=== PATIENT | male | born 1975 | race Caucasian/White ===

== ENCOUNTER 2019-01-11 03:45 | Outpatient (CLI) | payer MEDICAID | END 2019-01-11 03:46 | disposition EMS.NT | LOC: EMS 03:45 | PROVIDERS: ATTEND Surgery | DX: R06.2 Wheezing (principal) ==

== ENCOUNTER 2019-01-11 07:47 | Outpatient (CLI) | payer MEDICAID | END 2019-01-11 07:48 | disposition critical access hospital (66) | LOC: EMS 07:47 | PROVIDERS: ATTEND Surgery | DX: R06.00 Dyspnea, unspecified (principal) | CPT/HCPCS: A0425; A0427; A0999 ==

== ENCOUNTER 2019-01-11 08:12 | Emergency (ER) | payer MEDICAID ==
[2019-01-11] MEDS ORDERED: PROPOFOL 1000 MG/100 ML 100 ML IV STA (08:23)
[2019-01-11] MEDS ORDERED: ROCURONIUM 50 MG/5 ML VIAL IVP STA (08:24)
[2019-01-11] MEDS ORDERED: ETOMIDATE 40 MG/20 ML VIAL IVP STA (08:24)
[2019-01-11] MEDS ORDERED: IPRATROPIUM/ALBUTEROL 3 ML NEB INH STA (08:25)
[2019-01-11 08:32] LABS: BASOPHILS # (AUTO) 0.1 10^3/uL (0.0-0.1); BASOPHILS % (AUTO) 0.3 %; EOSINOPHILS % (AUTO) 0.1 %; HGB - HEMOGLOBIN 12.4 g/dL (14.0-18.0); LYMPHOCYTES # (AUTO) 0.6 10^3/uL (1.5-3.5); LYMPHOCYTES % (AUTO) 3.2 %; MEAN CORPUSCULAR HEMOGLOBIN 26.3 pg (27.0-31.0); MEAN CORPUSCULAR HGB CONC 29.6 g/dL (32.0-36.0); MEAN PLATELET VOLUME 8.8 fL (7.4-11.4); MONOCYTES % (AUTO) 5.8 %; NEUTROPHILS % (AUTO) 86.5 %; PLT - PLATELET COUNT 506 10^3/uL (130-450); RED BLOOD COUNT 4.71 10^6/uL (4.70-6.10); RED CELL DISTRIBUTION WIDTH 14.7 % (12.0-15.0); VBG BASE EXCESS -11.7 mmol/L (-2 - +2); VBG PCO2 63.4 mmHg (41-51); VBG PH 7.09 (7.31-7.41); VBG PO2 65.2 mmHg (25-47); VBG TOTAL CO2 20.7 mmol/L (24-29); WHITE BLOOD COUNT 17.4 x10^3/uL (4.8-10.8)
[2019-01-11 08:46] LABS: ALBUMIN/GLOBULIN RATIO 0.8 (1.0-2.2); BILIRUBIN,TOTAL 0.8 mg/dL (0.2-1.0); CALCIUM 8.4 mg/dL (8.5-10.3); CREATININE 0.9 mg/dL (0.6-1.2); TOTAL PROTEIN 6.6 g/dL (6.7-8.2)
[2019-01-11] MEDS ORDERED: SODIUM CHLORIDE 0.9% 500 ML IV ONE ×2 (08:47→10:51)
--- NOTE | 2019-01-11 08:47 | XRAY Report ---
Reason: chest pain Procedure Date: 01/11/2019 Accession Number: [id number] / [id number] Procedure: XR - Chest 1 View X-Ray CPT Code: 77054 FULL RESULT: EXAM: CHEST RADIOGRAPHY EXAM DATE: 01/11/2019 08:21 AM. CLINICAL HISTORY: Chest pain. COMPARISON: None. TECHNIQUE: 1 view. FINDINGS: Lungs/Pleura: Opacified left chest with shift of the heart and mediastinum towards the right. Opacification may be due to effusion, consolidation, mass or combination of these. Mild right basilar atelectasis. Mediastinum: Left heart shadow obscured by opacified lung. Other: ET tube above the melvi IMPRESSION: 1. Opacified left chest with right-sided mediastinal shift. Opacification may be due to effusion, consolidation, mass 2. ET tube above the melvi RADIA
[2019-01-11 08:50] LABS: PLATELET ESTIMATE, MANUAL INCREASED (>450,000) (NORMAL); PLATELET MORPHOLOGY NORMAL APPEARANCE (NORMAL); RBC MORPHOLOGY (MULTIPLE) NORMAL APPEARANCE (NORMAL)
[2019-01-11] MEDS ORDERED: IOVERSOL 320 100 ML VIAL IVP ONE ×2 (08:52→09:32)
--- NOTE | 2019-01-11 08:52 | ED Physician Documentation ---
PD HPI DYSPNEA - Stated complaint Stated Complaint: SOA - Chief complaint Chief Complaint: Resp - History obtained from History obtained from: Family, EMS - History of Present Illness Timing - onset: How many weeks ago (3) Timing - onset during: Rest Timing - duration: Weeks, Other (2 years of a L back mass with worsening sob for 3 weeks) Timing - details: Gradual onset, Constant, Other (worsening) Severity Comments: severe Inciting event(s): Other (unknown) Improved by: Other (nothing) Worsened by: Exertion Associated symptoms: Other (pt has a Left back and chest wall mass for 2 years). No: Fever, Cough, Hemoptysis Similar symptoms before: Other (has hx of Asthma) Recently seen: Not recently seen - Treatment prior to arrival Treatment prior to arrival: Patient arrived by EMS, bagging en route. Refused treatment at home. But family requested transport to the ED. Review of Systems Unable to obtain: AMS, Other (severely hypoxic in respiratory distress) PD PAST MEDICAL HISTORY - Past Medical History Past Medical History: Yes Respiratory: Asthma Musculoskeletal: Other - Past Surgical History Past Surgical History: Yes - Present Medications Home Medications: Ambulatory Orders Medication Instructions Recorded Confirmed No Known Home Medications 01/11/19 01/11/19 - Allergies Allergies/Adverse Reactions: Allergies Allergy/AdvReac Type Severity Reaction Status Date / Time Unable to Assess Allergy Verified 01/11/19 08:24 - Social History Does the pt smoke?: No Smoking Status: Never smoker PD ED PE NORMAL - Vitals Vital signs reviewed: Yes (severe hypoxic, poor respiratory effort ) - General General: Other (pale, minimal respiratory effort ) - HEENT HEENT: Atraumatic - Neck Neck: No JVD - Cardiac Cardiac: RRR, No murmur, No gallop, No rub - Respiratory Respiratory: Other (decreased Breath sounds on the L, severe respiratory distress) - Abdomen Abdomen: Soft, Non tender, Non distended - Male Male : Deferred - Rectal Rectal: Deferred - Derm Derm: Other (pale ) PD ED PE EXPANDED - Cardiac Cardiac: Other (Left chest wall mass extending to back, firm mass) - Respiratory Respiratory: Decreased breath sounds, Left upper lobe, Left lower lobe, Other (poor effort ) - GCS Eye Opening: Spontaneous Motor: Withdraws to Pain Verbal: None Total: 9 Results - Vitals Vitals: Vital Signs - 24 hr 10/01/11/19 01/11/19 08:13 08:26 08:55 Temperature Heart Rate 119 H 135 H 130 H Respiratory 29 H 20 16 Rate Blood Pressure 153/91 H 100/69 105/75 O2 Saturation 96 100 100 01/11/19 01/11/19 01/11/19 09:16 09:32 09:38 Temperature 97.3 C H Heart Rate 118 H 120 H 120 H Respiratory 14 18 18 Rate Blood Pressure 124/81 H 102/76 O2 Saturation 100 100 01/11/19 01/11/19 01/11/19 09:45 10:03 10:26 Temperature Heart Rate 119 H 118 H 117 H Respiratory 18 18 17 Rate Blood Pressure 102/76 98/68 102/78 O2 Saturation 100 100 100 01/11/19 01/11/19 01/11/19 10:47 10:54 11:07 Temperature Heart Rate 110 H 113 H 124 H Respiratory 18 18 18 Rate Blood Pressure 81/67 L 97/74 103/77 O2 Saturation 100 100 98 01/11/19 01/11/19 11:32 12:11 Temperature Heart Rate 111 H 79 Respiratory 19 18 Rate Blood Pressure 98/76 97/57 L O2 Saturation 99 100 Oxygen O2 Source Mechanical ventilator - EKG (time done) 09:49 Rate: Rate (enter#) (119) Rhythm: Sinus tachycardia Morris: Normal Intervals: Normal IN. No: Prolonged QT, QRS normal Ischemia: ST depression (diffusely with moderate avr elevation ) Computer interpretation: Disagree with computer (st depressions present throughout ) - Labs Labs: Microbiology 01/11/19 12:20 Body Fluid Culture - Preliminary Other - Pleura, L Lung Laboratory Tests 01/11/19 01/11/19 01/11/19 08:25 08:25 08:25 WBC 17.4 H RBC 4.71 Hgb 12.4 L Hct 41.9 L MCV 89.0 MCH 26.3 L MCHC 29.6 L RDW 14.7 Plt Count 506 H MPV 8.8 Neut # (Auto) 15.0 H Lymph # (Auto) 0.6 L [place] # (Auto) 1.0 Eos # (Auto) 0.0 Baso # (Auto) 0.1 Absolute Nucleated RBC 0.00 Nucleated RBC % 0.0 Manual Slide Review Indicated WBC Morphology Platelet Estimate INCREASED (>450,000) Platelet Morphology NORMAL APPEARANCE RBC Morph Micro Appear NORMAL APPEARANCE Bld Gas Analysis Time Sample Site ABG pH ABG pCO2 ABG pO2 ABG HCO3 ABG Total CO2 ABG O2 Saturation ABG Oximetry Spot Check ABG Base Excess Raul Test VBG pH 7.090 L VBG pCO2 63.4 H VBG pO2 65.2 H VBG HCO3 18.8 L VBG Total CO2 20.7 L VBG O2 Saturation 82.4 H VBG Base Excess -11.7 L Respiration Rate O2 Delivery Device Vent Mode FiO2 Tidal Volume PEEP Pressure Support Vent Sodium 140 Potassium 4.0 Chloride 102 Carbon Dioxide 20 L Anion Gap 18.0 H BUN 19 Creatinine 0.9 Estimated GFR (MDRD) 92 Glucose 183 H Calcium 8.4 L Total Bilirubin 0.8 AST 102 H ALT 47 Alkaline Phosphatase 163 H Lactate Dehydrogenase Total Protein 6.6 L Albumin 3.0 L Globulin 3.6 Albumin/Globulin Ratio 0.8 L Lipase 20 L Urine Color Urine Clarity Urine pH Ur Specific [place] Urine Protein Urine Glucose (UA) Urine Ketones Urine Occult Blood Urine Nitrite Urine Bilirubin Urine Urobilinogen Ur Leukocyte Esterase Urine RBC Urine WBC Ur Squamous Epith Cells Urine Bacteria Urine Sperm Ur Microscopic Review Urine Culture Comments Fluid Source Fluid Color Fluid Clarity Fluid WBC Fluid RBC Fluid Neutrophils % Fluid Lymphocytes % Fluid Monocytes % Fluid Macrophages % Fld Mesothelial Cell % 01/11/19 01/11/19 01/11/19 08:25 08:50 09:17 WBC RBC Hgb Hct MCV MCH MCHC RDW Plt Count MPV Neut # (Auto) Lymph # (Auto) [place] # (Auto) Eos # (Auto) Baso # (Auto) Absolute Nucleated RBC Nucleated RBC % Manual Slide Review WBC Morphology Platelet Estimate Platelet Morphology RBC Morph Micro Appear Bld Gas Analysis Time 0925 Sample Site RIGHT RADIAL ABG pH 7.25 L ABG pCO2 51 H ABG pO2 168 H* ABG HCO3 21.6 L ABG Total CO2 23.2 ABG O2 Saturation 99 H ABG Oximetry Spot Check 100 ABG Base Excess -5.9 L Raul Test POSITIVE VBG pH VBG pCO2 VBG pO2 VBG HCO3 VBG Total CO2 VBG O2 Saturation VBG Base Excess Respiration Rate 14 O2 Delivery Device VENTILATOR Vent Mode SIMV FiO2 100.00 Tidal Volume 540 PEEP 5 Pressure Support Vent 10 Sodium Potassium Chloride Carbon Dioxide Anion Gap BUN Creatinine Estimated GFR (MDRD) Glucose Calcium Total Bilirubin AST ALT Alkaline Phosphatase Lactate Dehydrogenase 1279 H Total Protein Albumin Globulin Albumin/Globulin Ratio Lipase Urine Color BROWN Urine Clarity HAZY Urine pH Ur Specific [place] Urine Protein Urine Glucose (UA) NEGATIVE Urine Ketones Urine Occult Blood NEGATIVE Urine Nitrite Urine Bilirubin NEGATIVE Urine Urobilinogen Ur Leukocyte Esterase NEGATIVE Urine RBC 3 Urine WBC 4-5 Ur Squamous Epith Cells RARE Squamous Urine Bacteria Moderate H Urine Sperm PRESENT Ur Microscopic Review INDICATED Urine Culture Comments INDICATED Fluid Source Fluid Color Fluid Clarity Fluid WBC Fluid RBC Fluid Neutrophils % Fluid Lymphocytes % Fluid Monocytes % Fluid Macrophages % Fld Mesothelial Cell % 01/11/19 12:20 WBC RBC Hgb Hct MCV MCH MCHC RDW Plt Count MPV Neut # (Auto) Lymph # (Auto) [place] # (Auto) Eos # (Auto) Baso # (Auto) Absolute Nucleated RBC Nucleated RBC % Manual Slide Review WBC Morphology Platelet Estimate Platelet Morphology RBC Morph Micro Appear Bld Gas Analysis Time Sample Site ABG pH ABG pCO2 ABG pO2 ABG HCO3 ABG Total CO2 ABG O2 Saturation ABG Oximetry Spot Check ABG Base Excess Raul Test VBG pH VBG pCO2 VBG pO2 VBG HCO3 VBG Total CO2 VBG O2 Saturation VBG Base Excess Respiration Rate O2 Delivery Device Vent Mode FiO2 Tidal Volume PEEP Pressure Support Vent Sodium Potassium Chloride Carbon Dioxide Anion Gap BUN Creatinine Estimated GFR (MDRD) Glucose Calcium Total Bilirubin AST ALT Alkaline Phosphatase Lactate Dehydrogenase Total Protein Albumin Globulin Albumin/Globulin Ratio Lipase Urine Color Urine Clarity Urine pH Ur Specific [place] Urine Protein Urine Glucose (UA) Urine Ketones Urine Occult Blood Urine Nitrite Urine Bilirubin Urine Urobilinogen Ur Leukocyte Esterase Urine RBC Urine WBC Ur Squamous Epith Cells Urine Bacteria Urine Sperm Ur Microscopic Review Urine Culture Comments Fluid Source PLEURAL Fluid Color YELLOW Fluid Clarity CLEAR Fluid WBC 594 Fluid RBC < 3000 Fluid Neutrophils % 12 Fluid Lymphocytes % 74 Fluid Monocytes % 9 Fluid Macrophages % 5 Fld Mesothelial Cell % Not Reportable - Rads (name of study) CXR Radiology: Final report received (L lung white opacification ETT in place above the melvi ), EMP read contemporaneously, See rad report Procedures - Intubation Provider: Emergency physician Medications: Etomidate (20mg), Rocuronium (100mg) Blade: Leatha (3) Tube: Size-enter number (7.5), Cuffed Route: Oral Confirmation: Direct visualization, No abdominal breath sound, End tidal CO2, Pulse ox, Chest xray Complications: No compications, Other (initially lifted tube to achieve L sided breath sounds however after obtaining xray showing opacification of the L lung with the ETT above the melvi, opted to further advance the tube for purposeful R mainstem given patient has no ventilation capability of the L lung at this time. This is likely due to a mass though effusion also possible.) PD MEDICAL DECISION MAKING - ED course Complexity details: reviewed results, re-evaluated patient, considered differential, d/w patient, d/w family ED course: ddx - lung mass, pleural effusion, asthma, copd, pneumothorax, hemothorax, chf 43 y/o M with severe respiratory distress requiring intubation on arrival, pt not consentable but did obtain verbal consent from family for the procedure. Intubated without complication, noted to have a L chest wall mass that family reports is ongoing for 2 years. Pt reportedly does not go to the doctor and is distrustful of hospitals and physicians thus did not h ave the mass evaluated though he told the family he had a mole removed by a anthropologist they do not feel this was truthful. On review of his CXR after intubation he has complete opacification of the L lung and this is not due to R mainsteming of the ETT this is due to either mass or effusion or postobstructive pneumonia. Will obtain a CT to further characterize. However opted to further advance the ETT to purposefully mainstem the R bronchus in an effort to optimize oxygenation to the R lung since the L is opacified. Labs showed a vbg that was very acidotic due to a respiratory acidosis. CT confirmed L pleural effusion with diffuse metastatic disease, unknown primary source. Spleen and liver mets, retroperitoneal and axillary lymphadenopathy, large chest wall mass. Given shock and possibility of obstructive vs septic shock will treat empirically with Cefepime for possible post obstructive pneumonia. Blood cultures were sent. Pt does have some ST depressions diffusely on his EKG. However he is not a candidate for intervention and suspect this is due to heart strain given he is in shock. Pt decided patient is a DNR but would like to undergo a thoracentesis as a palliative treatment to relieve patient's hypotension as he appears to be in obstructive shock and potentially wean him off the ventilator eventually. Dr. Lozada, surgery performed the thoracentesis, I consented the patient's family as did Dr. Lozada. The thoracentesis removed 3.5L of fluid from his L lung. His BP did improve thus I do not feel a central line is needed prior to transfer. Arranged air transfer. Pt accepted for transfer to [facility]. - Consults Consults: Discussed case with (surgery to assist with thoracentesis ) - Critical Care Time(min): 90 Comments: patient bagged on arrival then intubated with RSI, managed the ventilator, interpreted blood gasses, consulted surgery, treated obstructive shock with fluids followed by thoracentesis with improvement, arranged transfer. Discussions regarding end of life care and palliative options with family, code status. 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
[2019-01-11 09:33] LABS: GLUCOSE, URINE (UA) NEGATIVE (NEGATIVE); LEUKOCYTE ESTERASE, URINE NEGATIVE (NEGATIVE); OCCULT BLOOD,URINE NEGATIVE (NEGATIVE)
[2019-01-11 09:39] LABS: ABG HCO3 21.6 mmol/L (22.0-26.0); ABG PCO2 51 mmHg (34-45); ABG PH 7.25 (7.35-7.45)
[2019-01-11 09:40] LABS: ABG BASE EXCESS -5.9 mmol/L (-2.0-3.0); ABG OXYGEN SATURATION 99 % (94-98); ABG TCO2 23.2 MMOL/L (21.0-29.0); ALLEN TEST POSITIVE
[2019-01-11 09:44] LABS: ABG PO2 168 mmHg (80-100)
[2019-01-11 09:45] LABS: CLARITY,URINE HAZY (CLEAR)
[2019-01-11 09:46] LABS: BILIRUBIN,URINE NEGATIVE (NEGATIVE); ICTOTEST,URINE NEGATIVE
[2019-01-11 09:47] LABS: BACTERIA,URINE Moderate /HPF (None Seen); RBC,URINE 3 /HPF (0-5); SPERM,URINE PRESENT; SQUAMOUS EPITHELIAL CELL,UR RARE Squamous (<= Few)
--- NOTE | 2019-01-11 10:15 | CT Report ---
Reason: hypoxia, L lung mass likely Procedure Date: 01/11/2019 Accession Number: [id number] / [id number] Procedure: CT - Abdomen/Pelvis W CPT Code: FULL RESULT: EXAM: CT ABDOMEN AND PELVIS EXAM DATE: 01/11/2019 09:29 AM. CLINICAL HISTORY: Hypoxia, L lung mass likely. COMPARISONS: None. TECHNIQUE: Routine helical CT imaging was performed through the abdomen and pelvis. IV contrast: I did cc Optiray 320. Enteric contrast: No. Reconstructions: Coronal and sagittal. In accordance with CT protocol optimization, one or more of the following dose reduction techniques were utilized for this exam: automated exposure control, adjustment of mA and/or KV based on patient size, or use of iterative reconstructive technique. FINDINGS: Liver: Multiple greater than 5 enhancing nodular regions in the liver including left lobe 1.7 cm. Right lobe 1.8 cm. Gallbladder/Bile Ducts: Unremarkable. Spleen: Large left pleural effusion displaces the spleen inferiorly and anteriorly. Multiple low-density lesions in the spleen largest 2 cm. Pancreas: Normal. Adrenal Glands: Normal. Kidneys: Normal. No masses or hydronephrosis. Peritoneal Cavity/Bowel: Mesenteric lymph nodes measuring up to 2.7 cm. Retroperitoneal lymph nodes including lymph nodes adjacent to the celiac access, preaortic 2.7 cm. Retrocrural lymph nodes. . No free fluid in the abdomen. Pelvic Organs: Contreras catheter in the bladder. The bladder and visualized pelvic organs are within normal limits. Vasculature: No aneurysms or other significant abnormality. Bones: Diffuse lytic lesions in the spine, pelvis including the iliac, ischium, pubis. Other: Subcutaneous nodules along the left abdominal wall. IMPRESSION: 1. Multiple enhancing liver lesions. 2. Multiple low-density lesions in the spleen. 3. Retroperitoneal and mesenteric lymphadenopathy. 4. Diffuse bony metastases in the pelvis, spine 5. Subcutaneous nodules on the left abdominal wall RADIA The call report notification system was initiated by Dr. Kathya Sow at 10:07 AM on 01/11/2019. The above call report findings were discussed with Catina Plascencia by Dr. Kathya Sow at 10:14 AM on 01/11/2019.
--- NOTE | 2019-01-11 10:18 | CT Report ---
Reason: L lung white out, likely mass, hypoxia Procedure Date: 01/11/2019 Accession Number: [id number] / [id number] Procedure: CT - CHEST W CPT Code: FULL RESULT: EXAM: CT CHEST EXAM DATE: 01/11/2019 09:29 AM. CLINICAL HISTORY: L lung white out, likely mass, hypoxia. COMPARISONS: CHEST 1 VIEW 01/11/2019 8:21 AM. TECHNIQUE: Routine helical CT imaging was performed through the chest. IV contrast: None. Reconstructions: Coronal and sagittal. In accordance with CT protocol optimization, one or more of the following dose reduction techniques were utilized for this exam: automated exposure control, adjustment of mA and/or KV based on patient size, or use of iterative reconstructive technique. FINDINGS: Lungs/Pleura: Left lung opacification is from large left effusion. There are pleural-based nodules in the left upper lobe 4.1, 2.6 cm. Diffuse infiltrates and nodular densities in the right upper lobe, right middle lobe and right lower lobe. Mediastinum: Mediastinal adenopathy. Prevascular 2.2 cm, right paratracheal 1.9 cm, precarinal 2.8 cm, subcarinal 4.2 cm. Right hilar 3.6 cm, left hilar 1.9 cm. Shift of the heart and mediastinum Bones: Diffuse lytic lesions in the spine, ribs, sternum. Compression fractures T7 loss of height 40%. Mild compression at T10, T11. Lytic lesions in the ribs with fracture of left sixth rib. Other: Bilateral axillary, retropectoral lymph nodes with low-density centrally likely necrosis. Confluent lymph nodes measuring up to 7.9 cm in left axilla. Right axillary lymph nodes up to 5 cm. There is subcutaneous nodules along the left chest wall. Left supraclavicular adenopathy IMPRESSION: 1. Large left effusion filling left chest. Also pleural-based nodules in left upper lobe. 2. Diffuse infiltrates and nodular densities in the right lung. 3. Mediastinal, hilar adenopathy. 4. Large bilateral axillary, retropectoral lymph nodes with necrosis. Subcutaneous nodules or lymph nodes along left chest wall. Left supraclavicular adenopathy. 5. Diffuse bony metastases. Compression T7, T10, T11. T7 compression loss of height 40%. MRI as clinically warranted. RADIA
[2019-01-11] MEDS ORDERED: fentaNYL 100 MCG/2 ML VIAL IVP STA (10:39)
[2019-01-11] MEDS ORDERED: CEFEPIME 2 GM in SODIUM CHLORIDE 0.9% MINIBAG 100 ML IV STA (11:32)
[2019-01-11 12:12] VITALS: BP 97/57
[2019-01-11 13:15] LABS: BF COLOR YELLOW; CC,BF RBC < 3000 /mm^3
[2019-01-11 13:16] LABS: BF SOURCE PLEURAL
[2019-01-11 13:58] LABS: LYMPHOCYTES %,BODY FLUID 74; MACROPHAGES %,BODY FLUID 5 %; MONOCYTES %,BODY FLUID 9 %
--- NOTE | 2019-01-11 16:49 | PROCEDURE REPORT ---
Hospitalist Procedure Note - Procedure Note Procedure Note: Left thoracentesis: After informed consent was obtained from patient's family, patient's left lateral chest wall was prepped with Cloroprep and draped in the usual sterile fashion. 1% lidocaine with epi was used for local anesthesia. 10 ml was used. A 20# needle and syringe were used to enter the pleural space in the approximate left 5th interspace in the mid axillary line to confirm the presence of drainable pleural fluid. Clear yellow fluid was obtained, so a larger #14 pleural catheter was inserted in the same location percutaneously, and 3.75 liters of similar fluid was evacuated into vacutainer bottles. The catheter was then removed, a dry sterile dressing applied, and the procedure terminated without apparent complication. A f/u CXR showed full expansion of the left lung and almost complete resolution of the pleural effusion, and no complications. Pt tolerated the procedure well. The fluid was sent for analysis as ordered by Dr. Plascencia.
--- NOTE | 2019-01-11 16:56 | CONSULTATION NOTE ---
Referring Provider Name of Referring Provider:: Dr. Catina Plascencia Consult Date: 01/11/19 Chief Complaint - Chief Complaint Chief Complaint: massive left pleural effusion with acute respiratory failure History of Present Illness - Admitted From Admitted From:: ER - History Obtained From Records Reviewed: yes History obtained from: records, Dr. Plascencia Exam Limitations: pt is unconscious, on a ventilator - History of Present Illness HPI Comment/Other: 43 yo male with a hx of what appears to be widely metastatic neoplasm of unclear etiology which has gone undiagnosed and untreated at the patient's request. He was noted to have progressive worsening dyspnea over the past several weeks, with acute worsening this morning, which prompted the family to activate the EMS system and bring the patient to the ER. On arrival he was seen to be in acute respiratory failure, was intubated and placed on a ventilator. Evaluation with CXR and Chest/abd/pelvis CT showed massive left pleural effusion with rightward mediastinal shift, along with evidence of widespread metastatic disease, involving bones, liver, spleen, and mediastinal and retroperitoneal lymphaden opathy, along with multiple subcutaneous soft tissue masses. Consultation was requested for urgent palliative thoracentesis. History - Past Medical History Respiratory: reports: Asthma Musculoskeletal: reports: Other Meds/Allgy - Home Medications Home Medications: Ambulatory Orders Medication Instructions Recorded Confirmed No Known Home Medications 01/11/19 01/11/19 - Allergies Allergies/Adverse Reactions: Allergies Allergy/AdvReac Type Severity Reaction Status Date / Time Unable to Assess Allergy Verified 01/11/19 08:24 Review of Systems - All Other Systems All Other Systems: reports: Other (unable to assess/pt unconscious) Exam - Vital Signs Reviewed Vital Signs: Yes Vital Signs: Vital Signs x48h Temp Pulse Resp BP Pulse Ox 01/11/19 12:11 79 18 97/57 L 100 01/11/19 11:32 111 H 19 98/76 99 01/11/19 11:07 124 H 18 103/77 98 01/11/19 10:54 113 H 18 97/74 100 01/11/19 10:47 110 H 18 81/67 L 100 01/11/19 10:26 117 H 17 102/78 100 01/11/19 10:03 118 H 18 98/68 100 01/11/19 09:45 119 H 18 102/76 100 01/11/19 09:38 120 H 18 01/11/19 09:32 120 H 18 102/76 100 01/11/19 09:16 97.3 C H 118 H 14 124/81 H 100 01/11/19 08:55 130 H 16 105/75 100 - Physical Exam General Appearance: positive: Other (intubated, unresponsive) Neck: positive: No JVD, Trachea midline Respiratory: positive: Other (decreased breath sounds on the left; large soft tissue mass(es) in left axilla) Cardiovascular: positive: Other (distant heart sounds) Conclusion/Plan - Diagnosis Diagnosis: 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 - Lab Results Lab results reviewed: Yes Fish Bones: 01/11/19 08:25 01/11/19 08:25 - Diagnostic Imaging Results Diagnostic Imaging Results: positive: Final report reviewed, Read independently Diagnostic Imaging Results Comments: See HPI
== END 2019-01-11 12:59 | disposition short-term general hospital (02) ==
LOC: ED 08:12
DX: J96.21 Acute and chronic respiratory failure with hypoxia (principal); J90 Pleural effusion, not elsewhere classified; E87.2 Acidosis; R57.8 Other shock; C78.02 Secondary malignant neoplasm of left lung; C78.7 Secondary malignant neoplasm of liver and intrahepatic bile duct; C79.51 Secondary malignant neoplasm of bone; C78.89 Secondary malignant neoplasm of other digestive organs; C80.1 Malignant (primary) neoplasm, unspecified; R22.2 Localized swelling, mass and lump, trunk; R00.0 Tachycardia, unspecified; R94.31 Abnormal electrocardiogram [ECG] [EKG]; J45.909 Unspecified asthma, uncomplicated
CPT/HCPCS: 31500; 32554; 36415; 51702; 71045; 71260; 74177; 80053; 81001; 81599; 82803; 83615; 83690; 85025; 87040; 87070; 87086; 87205; 89051; 93005; 94002; 94640; 96365; 96366; 96368; 96375; 99291; 99292; Q9967; 81003; 82945; 84157; 84484